=== PATIENT | male | born 1990 | race Caucasian/White ===

== ENCOUNTER 2017-06-17 18:54 | Emergency (ER) | payer OTHER ==
[~2017-06-17] VITALS: Ht 167.6 cm; Wt 86.4 kg
[2017-06-17] MEDS ORDERED: ALBU8HFA IH (19:24)
[2017-06-17] MEDS ORDERED: 0.9% SODIUM CHLORIDE 5 ML NEB SOLUTION NEB ONE (19:36)
[2017-06-17] MEDS ORDERED: IPRATROPIUM BROMIDE 0.5 MG/2.5 ML NEB SOLUTION NEB ONE (19:45)
[2017-06-17] MEDS ORDERED: ALBUTEROL SULFATE 5 MG/ML 20 ML NEB SOLN [BULK] NEB ONE (19:45)
[2017-06-17] MEDS ORDERED: DEXAMETHASONE SOD PHOS 4 MG/ML 5 ML VIAL IM ONE (20:00)
[2017-06-17 21:12] LABS: INFLUENZA TYPE A NEGATIVE FOR TYPE A (NEGATIVE); INFLUENZA TYPE B NEGATIVE FOR TYPE B (NEGATIVE)
[2017-06-17 21:15] VITALS: BP 136/68
== END 2017-06-17 21:43 | disposition home or self-care (01) ==
LOC: EMS 18:56
DX: J45.909 Unspecified asthma, uncomplicated (principal)
CPT/HCPCS: 87804; 94644; 96372; 99285; J1100; J7611

== ENCOUNTER 2018-11-26 14:18 | Emergency (ER) | payer OTHER ==
[~2018-11-26] VITALS: Ht 170.2 cm; Wt 90.9 kg
[~2018-11-26 14:18] MED LIST: ALBU8HFA IH
[2018-11-26] MEDS ORDERED: [UNRECOGNIZED DRUG - OTHER] IH (14:29)
[2018-11-26 15:30] VITALS: BP 137/78
[2018-11-26] MEDS ORDERED: PERTUSS(ACELL),DIPH,TET VAC/PF 0.5 ML VIAL IM ONE (15:30)
== END 2018-11-26 16:02 | disposition home or self-care (01) ==
LOC: EMS 14:19
DX: S71.131A Puncture wound without foreign body, right thigh, initial encounter (principal); J45.909 Unspecified asthma, uncomplicated; W54.0XXA Bitten by dog, initial encounter; Y93.01 Activity, walking, marching and hiking; Y92.89 Other specified places as the place of occurrence of the external cause; Y99.8 Other external cause status
CPT/HCPCS: 90471; 90715

== ENCOUNTER 2024-04-13 21:22 | Emergency (ER) | payer MEDICAID, OTHER ==
[~2024-04-13] VITALS: Ht 170.2 cm; Wt 90.9 kg
[~2024-04-13 21:22] MED LIST changes: +ALBU18HF12 IH; -ALBU8HFA IH; +[UNRECOGNIZED DRUG - OTHER] IH
[2024-04-13 21:39] VITALS: TEMP 97.7
[2024-04-13 22:00] VITALS: BP 150/78; PULSE 57; RESP 18; O2SAT 98
[2024-04-13] MEDS ORDERED: CEPH-558 PO (22:43)
[2024-04-13] MEDS ORDERED: SULF-261 PO (22:43)
[2024-04-13] MEDS: SULFAMETHOX/TRIMETH DS 800-160 MG/TABLET PO ONE (22:46)
[2024-04-13] MEDS: BACITRACIN 28 GM OINTMENT TP ONE (22:46)
[2024-04-13] MEDS: CEPHALEXIN MONOHYDRATE 500 MG CAPSULE PO ONE (22:46)
== END 2024-04-13 23:05 | disposition home or self-care (01) ==
LOC: EMS 21:22
DX: S60.111A Contusion of right thumb with damage to nail, initial encounter (principal); J45.909 Unspecified asthma, uncomplicated; W31.89XA Contact with other specified machinery, initial encounter; Y93.89 Activity, other specified; Y92.89 Other specified places as the place of occurrence of the external cause; Y99.8 Other external cause status
CPT/HCPCS: 99284; Z7502; Z7610